=== PATIENT | male | born 1980 ===

== ENCOUNTER 2020-08-22 12:23 | Outpatient (CLI) | payer OTHER ==
[2020-08-22 13:29] VITALS: BP 134/100
--- NOTE | 2020-08-22 13:29 | SLEEP CARE CONSULTATION ---
Information from patient questionnaire entered by Nisha Raya. I have reviewed and concur with the information entered by Nisha Raya. This document represents the service I personally performed and the decisions made by me, Johana Jacobo ARNP. History of Present Illness Service Date and Time: 08/22/2020 1223 Reason for Visit: New patient Chief Complaint: reports: Unrefreshed sleep (majority of the days), Snoring, Excessive daytime sleepiness, Observed pauses in breathing, Fatigue, Frequent awakenings at night Date of Onset: 6 years Usual bedtime: 10:30 pm Time it takes to fall asleep: 30-60 minutes Snores at night: Yes Observed to quit breathing while asleep: Yes Number of times waking at night: 3-4 Reasons for waking at night: reports: Snoring, Gasping for air Toss, Turn, or Twitch while sleeping: Yes Recalls having dreams: Yes Usually gets out of bed at: 5:30 am Feels refreshed in the morning: No Morning headache: No Sleepy or fatigued during the day: Yes Ever fallen asleep while driving: Yes (drowsy driving, no accidents) Takes day naps: No Dreams during day naps: No Prior sleep studies: No Additional HPI information: I had the pleasure of seeing LUCAS LI today regarding the possibility of him having a sleep disorder. His current complaints are snoring, observed pauses in breathing, frequent night awakenings, excessive daytime sleepiness and fatigue. He has been snoring for the last 5-6 years but recently he has started waking up gasping for air occasionally. He is single so no one has told him he stops breathing but since he is gasping he feels he must be having pauses in breathing. He has woken himself up snoring. He does not wake up feeling rested and is fatigued during the day. He has had some instances of drowsy driving but no accidents. His father snores. - Parasomnia Symptoms Ever been unable to move upon waking from sleep: Yes Walks in sleep: No Talks in sleep: Yes (sometimes) Ever acted out dreams in sleep: No Ever felt weak in the knees when startled or emotional: Yes Bothered by creepy, crawly, restless sensations in legs: No Problems with memory or concentration: Yes (concentration sometimes) Subjective Initial [place] Sleepiness Scale score: 18 (in 2020) Past Medical History Past Medical History: reports: Hypertension, Anxiety, Depression Social History The patient's occupation is a Active . Patient is Single and lives in [place]. Have you smoked in the past 12 months: No Alcohol use: Yes Alcohol amount and frequency: 2-3 drinks once a week Caffeine use: Yes Caffeine amount and frequency: 1-2 times week energy drink in afternoon Family History Family history of sleep disordered breathing: No Family Hx Sleep Apnea: Father: Snoring Allergies and Home Medications Drug allergies reviewed: Yes (NKDA) Home medication list reviewed: Yes Allergy and home medication list: Blood pressure medication (just started on Wednesday, cannot remember name) Review of Systems Weight gain over past 5 years: 30 Cardiovascular: reports: high blood pressure Psychiatric: reports: anxiety, depression Ear/Nose/Throat: reports: nasal congestion, wisdom teeth removed. denies: tonsillectomy Endocrine: reports: sluggishness Musculoskeletal: reports: joint pain, back pain Immunologic: reports: sneezing, allergies to food or environment (hayfever; fresh pineapple when younger) Physical Exam Blood Pressure: 134/100 (started bp meds on wednesday) Cuff size: wrist Heart Rate: 103 O2 Saturation: 97 Height: 6 ft 3 in Weight: 292 lb Body Mass Index: 36.5 BMI Classification: Obese Neck circumference: 18.5 (inches) Nostrils: patent to airflow Turbinates: swollen Septum: midline Mouth and throat: narrow oropharynx Uvula visualization: 25% Mallampati Class III Tongue: enlarged in size with teeth abbott on lateral edges Tonsils: 2+ Chin and jaw: normal size and position Neck: normal w/o lymphadenopathy or thyromegaly Heart: regular rate and rhythm Lungs: clear bilaterally Impression and Plan 1. Suspected Obstructive Sleep Apnea-Hypopnea Syndrome, as suggested by a history of loud and irregular snoring, observed cessation of breath while asleep, gasping or choking in sleep, frequent awakening during the night, unrefreshed sleep, cognitive impairment, and excessive daytime sleepiness. Narrow oropharynx and obesity are common predisposing factors for obstructive sleep apnea-hypopnea syndrome. I recommend proceeding to polysomnography to confirm the diagnosis and to assess severity. If the patient has significant sleep disordered breathing, a manual CPAP titration study will also be performed to find the optimal treatment pressure. I informed the patient of what the sleep studies involve and after some discussion, obtained agreement to proceed. The pathophysiology of obstructive sleep apnea-hypopnea syndrome was discussed with the patient and health risks of cardiovascular and cerebrovascular disease if not treated. AASM brochure for obstructive sleep apnea-hypopnea syndrome given and reviewed. Risks of drowsy driving discussed in detail and patient advised to avoid long distance driving and to dross puller at the first sign of drowsiness. Patient agreed to plan. * Schedule polysomnography +- manual CPAP titration study and return in 1-2 weeks after the study to discuss result and initiate therapy. * Avoid long distance driving or driving when feeling sleepy. * Avoid alcohol, sedative and muscle relaxant around bedtime. * Attempt to lose weight. * Review instructions provided by trained office staff on how to prepare for the sleep study. * Return for follow-up after sleep study completed. Counseling Topics: Weight loss health impact Visit Type: In Office Time Spent with Patient (minutes): 30 Provider Statement: I spent 100% of the Face to Face Visit with the patient with greater than 50% spent counseling the patient and coordination of care.
== END 2020-08-22 12:24 | disposition home or self-care (01) ==
LOC: SC 12:23
PROVIDERS: ATTEND Nurse Practitioner Family
DX: R06.83 Snoring (principal); R06.81 Apnea, not elsewhere classified; G47.8 Other sleep disorders; R41.89 Other symptoms and signs involving cognitive functions and awareness; G47.10 Hypersomnia, unspecified; E66.9 Obesity, unspecified; Z68.36 Body mass index [BMI] 36.0-36.9, adult
CPT/HCPCS: 99203; 99212

== ENCOUNTER 2020-09-05 13:33 | Outpatient (CLI) | payer OTHER | END 2020-09-05 13:34 | disposition home or self-care (01) | LOC: SC 13:33 | PROVIDERS: ATTEND Nurse Practitioner Family | DX: G47.33 Obstructive sleep apnea (adult) (pediatric) (principal) | CPT/HCPCS: 95806 ==

== ENCOUNTER 2020-09-11 09:02 | Outpatient (CLI) | payer OTHER ==
--- NOTE | 2020-09-11 09:39 | SLEEP CARE CONSULTATION ---
Information from patient questionnaire entered by Nisha Raya. I have reviewed and concur with the information entered by Nisha Raya. This document represents the service I personally performed and the decisions made by , Johana Jacobo ARNP. History of Present Illness Service Date and Time: 09/11/2020 09 Initial [place] Sleepiness Scale score: 18 (in 2020) Current [place] Sleepiness Scale score: 21 Additional HPI information: LUCAS LI returns for follow up and results of the recently performed home sleep study. I explained the pathophysiology behind obstructive sleep apnea. We then spent quite a bit of time discussing different treatment options. For mild obstructive sleep apnea, surgery and oral appliance are alternatives to nasal CPAP therapy but in moderate or severe cases, nasal CPAP is the most effective and reliable treatment. Because apnea is primarily in supine position, then positional management therapy could be effective. Methods discussed such as positioning with pillows, using a T-shirt with tennis balls in the back, and shown commercial products that have a pillow format on back to prevent supine sleep. I reviewed the impact of weight changes on sleep apnea and strongly recommended losing weight. After some discussion, the patient opted to go with the nasal CPAP therapy. Nasal autoCPAP set at 4-15 cmH20 will be ordered with rationale explained. A manual titration study will be ordered if unable to find optimal pressure with office adjustments. I explained how CPAP machine works with sample devices Respironics Dreamstation and ResX BODY [id number] and what to expect when using the machine. Using CPAP every night in order to get used to it was emphasized. Patient advised to put CPAP mask on before getting into bed so as not to fall asleep without CPAP. To assist acclimation to CPAP use, it could also be used for a short time during day while reading or watching TV. The patient was instructed to call the CPAP supplier to discuss any mechanical problem that may occur. If the mask given is uncomfortable or is difficult to keep on through the night even with adjustment, contact the CPAP supplier as many will replace with another mask style if notified before 30 days. If snoring or perceives is not getting enough air or too much air from the machine, notify this office. [facility] patient education PAP tips reviewed and given to patient. Patient counseled not drink alcohol less than 4 hours before bedtime as it can increase snoring and apnea. Patient was cautioned about risks of drowsy driving until sleepiness symptoms resolve. Sleep Study - Results Type of Sleep Study: Home sleep study Prior sleep studies: No Polysomnography/Home Sleep Study results: Physician Impression: The quality of the study is good. The length of the study is [id number] (< 240 minutes). Please also see the tabulated and graphic data. 1. Obstructive Sleep Apnea-Hypopnea (ICD-10 G47.33), severe, with an AHI of 32.5 /hr and farida SaO2 of 71%. During the study, the patient had 64 apneas (64 obstructive, 0 central, 0 mixed) and 22 hypopneas. The longest episode lasted 90.5 seconds. The patient slept mostly supine (supine AHI was 35.5 and non-supine, 3.90). 2. Hypoxemia (ICD-10 R09.02), moderate, with the lowest oxygen saturation of 71 % and 92.8 minutes with SaO2 under 90%. Baseline oxygen saturation was low (Average oxygen saturation was 88%). Allergies and Home Medications Drug allergies reviewed: Yes (NKDA) Home medication list reviewed: Yes (HCTZ) Review of Systems Review of systems same as previous: No (hypertension) Physical Exam Heart Rate: 84 O2 Saturation: 98 Height: 6 ft 3 in Weight: 294 lb Body Mass Index: 36.7 BMI Classification: Obese Impression and Plan 1. Obstructive Sleep Apnea-Hypopnea Syndrome, severe, with lowest oxygen saturation of 71%. Obviously this is the cause of the patients symptoms of unrefreshed sleep, and excessive daytime sleepiness. Positive pressure therapy could benefit hypertension, anxiety and depression. As mentioned above, the patient will be started on nasal autoCPAP therapy with pressure set at 4-15 cmH2 O. A manual titration study will be completed if unable to find optimal treatment pressure with office adjustments. Compliance guidelines also reviewed. A copy of compliance guidelines will be given for reference at check out. Because the apnea is more severe supine, I instructed to avoid sleeping supine using pillow positioning until able to start CPAP use. 2. Hypoxemia, moderate, with his farida oxygen saturation of 71% and he spent 92.8 minutes with SaO2 under 90%. His baseline oxygen saturation was on average 88% which is low. Follow up with PCP as low oxygen saturation may indicate other health issues. Patient to discuss with his PCP. * Nasal auto CPAP therapy, pressure at 4-15 cm H2O. * Follow up with PCP for moderate nocturnal hypoxia * Attempt to lose weight. * Avoid alcohol consumption near bedtime. * Avoid supine sleep until using CPAP. * The patient is again cautioned about driving until sleepiness completely resolves. * Return one month after CPAP obtained. I will assess response to therapy and compliance at that time. Counseling Topics: Weight loss health impact Visit Type: In Office Time Spent with Patient (minutes): 20 Provider Statement: I spent 100% of the Face to Face Visit with the patient with greater than 50% spent counseling the patient and coordination of care.
== END 2020-09-11 09:03 | disposition home or self-care (01) ==
LOC: SC 09:02
PROVIDERS: ATTEND Nurse Practitioner Family
DX: G47.33 Obstructive sleep apnea (adult) (pediatric) (principal); R09.02 Hypoxemia; E66.9 Obesity, unspecified; Z68.36 Body mass index [BMI] 36.0-36.9, adult
CPT/HCPCS: 99212; 99213

== ENCOUNTER 2020-11-27 11:04 | Outpatient (CLI) | payer OTHER ==
--- NOTE | 2020-11-27 11:35 | SLEEP CARE CONSULTATION ---
Information from patient questionnaire entered by Nisha Raya. I have reviewed and concur with the information entered by Nisha Raya. This document represents the service I personally performed and the decisions made by me, Johana Jacobo ARNP. History of Present Illness Service Date and Time: 11/27/2020 1104 Previous diagnosis: Severe, Obstructive Sleep Apnea-Hypopnea Syndrome AHI: 32.5 (in 2020) Reason for follow up: first compliance Equipment obtained from: Other ([facility]; got inital supplies) Mask style: Full face Backup mask available: Yes (other mask) Last cushion change: 1.5 months Prior sleep studies: Yes Year and Where: 2020 - [facility] Type of Sleep Study: Home sleep study HPI additional information: LUCAS LI was diagnosed to have severe, AHI 32.5, obstructive sleep apnea-h ypopnea syndrome and returned today for CPAP therapy first compliance follow-up. CPAP Compliance Data Compliance data discussion: He states he has been using it most nights. His memory card did not have compliance information on it because it was not seated in machine right. Subjective Patient concerns: reports: mask discomfort (getting comfortable as gets used to it), mask leak noise (when sleeping on side), nasal congestion. denies: aerophagia, air blowing in eyes, condensation in mask/hose, dry mouth, nose, throat, epistaxis, other (waking up, may be due to allergies) Observed to snore while using device: No Current pressure setting perceived as: comfortable On therapy, patient: reports: sleeping better, awakening more refreshed, being more awake and alert during the day, more rested overall. denies: drowsiness while driving Initial [place] Sleepiness Scale score: 18 (in 2020) Current [place] Sleepiness Scale score: 12 Allergies and Home Medications Home medication list reviewed: Yes (no new medications) Review of Systems Review of systems same as previous: Yes (no changes) Physical Exam Heart Rate: 70 O2 Saturation: 98 Height: 6 ft 3 in Weight: 288 lb Body Mass Index: 36.0 BMI Classification: Obese Impression and Plan 1. Obstructive Sleep Apnea-Hypopnea Syndrome, severe, with unknown treatment compliance and unknown apnea control. On CPAP therapy, the patient has better sleep quality and is more rested overall. He states he is getting used to it and noticing reduced tiredness during the day and sleeping better overall. He has noticed some nasal congestion in the morning but not when using the machine. This is probably more due to seasonal allergies and he states not concerning. He did bring in the SD card but it only had on day of use on it because it was not seated fully in the machine. He was instructed to take home and put SD card into machine (making sure it is fully seated) and return to office with it when able. He states he can bring it back on Wednesday. Once I have this information, I will be able to adjust pressure on the machine to reflect his use. He voiced u nderstanding and agreed with plan. Patient's apnea severity and rationale for treatment to reduce apnea, improve sleep quality and reduce cardiovascular and cerebrovascular events was reviewed. I also reviewed the benefit of consistent device use of CPAP for hypertension, depression and anxiety. * Continue auto CPAP pressure at 4-15 cmH2O until able to review compliance report and then I will adjust pressure * Patient to bring in SD card after downloading information onto it from machine. * Notify me if snoring with mask or feeling that the pressure is too much or too little * Attempt to lose weight * Call this office if any problems using CPAP * Return for follow up in 1-2 months for pressure change/compliance review, or sooner if concerns arise Counseling Topics: Spare mask, Weight loss health impact Visit Type: In Office Time Spent with Patient (minutes): 23 Provider Statement: I spent 100% of the Face to Face Visit with the patient with greater than 50% spent counseling the patient and coordination of care.
== END 2020-11-27 11:05 | disposition home or self-care (01) ==
LOC: SC 11:04
PROVIDERS: ATTEND Nurse Practitioner Family
DX: G47.33 Obstructive sleep apnea (adult) (pediatric) (principal); E66.9 Obesity, unspecified; Z68.36 Body mass index [BMI] 36.0-36.9, adult
CPT/HCPCS: 99212; 99213